=== PATIENT | male | born 1940 | race Caucasian/White ===

== ENCOUNTER 2017-02-13 11:50 | Emergency (ER) | payer OTHER, BC ==
[~2017-02-13] VITALS: Ht 182.9 cm; Wt 81.2 kg
--- NOTE | ~2017-02-13 | EKG ---
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 02/14/17 1505 1155 1155 Cole Li MD, [facility] /EPI
[~2017-02-13 11:50] MED LIST: ASPIRIN325 PO; ASPIRIN81 M2 PO; ATENOLOL 50 MG50 M1 PO; ATENOLOL 50MG T50 M1 PO; ATORVASTATIN CA40 MG PO; BACTRIM DS TAB1 EACH PO; CRESTOR40 MG PO; FISH OIL300 MG PO; FLOMAX0.4 MG PO; IMDUR 30 MG TAB30 M1 PO; IMDUR 60 MG TAB60 M1 PO; LEVITRA2.5 MG PO; LEVITRA20 MG PO; LISINOPRIL20 MG PO; LOTRISONE CREAM15 GM; NITROGLYCERIN0.4 MG SUBLING; NITROQUICK0.4 MG SL; NORVASC 5 MG TAB5 MG PO; OCUVITE SOFTGE1 EAC1 PO; PLAVIX 75 MG TA75 MG PO; PROPRANOLOL HCL60 M1 PO; PROSCAR 5MG TABL5 MG PO; RANEXA500 MG PO; SORINE 80 MG TA80 M1 PO; TOLTERODINE TART4 MG PO; TYLENOL325 MG PO; VIAGRA100 MG PO; VITAMIN B-12500 MCG PO; VITAMIN D-32000 UNIT PO; XARELTO10 MG PO; XARELTO20 MG PO; ZANTAC 150MG T150 M1 PO; ZANTAC 150MG T150 MG PO; ZETIA10 MG PO
[2017-02-13] MEDS ORDERED: RANEXA500 MG PO (12:14)
[2017-02-13] MEDS ORDERED: NATURAL LUTEIN20 MG PO (12:15)
[2017-02-13 12:23] LABS: ABSOLUTE NEUTROPHILS 3.5 thou/uL (1.4-8.2); BASOPHILS 0.6 % (0.0-2.0); EOSINOPHILS 1.6 % (0.0-3.0); HEMATOCRIT 43.2 % (42.0-52.0); HEMOGLOBIN 15.3 gm/dL (14.0-18.0); LYMPHOCYTES 21.7 % (24.0-44.0); MCH 32.5 pg (26.0-34.0); MCHC 35.5 g/dL (28.0-37.0); MCV 91.5 fL (80.0-100.0); MONOCYTES 9.3 % (1.0-8.0); PLATELET COUNT 150 thou/uL (150-400); POLYS 66.8 % (36.0-66.0); RBC 4.72 mil/uL (4.50-6.00); RDW 13.7 % (10.5-14.5); WBC 5.2 thou/uL (4.0-11.0)
[2017-02-13 12:25] LABS: MANUAL DIFF NO
[2017-02-13 12:49] LABS: ANION GAP 7 mmol/L (7-16); BUN 13 mg/dL (7-18); CALCIUM 8.4 mg/dL (8.5-10.1); CHLORIDE 106 mmol/L (98-107); CO2 26 mmol/L (21-32); GLUCOSE 112 mg/dL (74-106); POTASSIUM 3.9 mmol/L (3.5-5.1); SODIUM 139 mmol/L (136-145)
[2017-02-13 13:00] LABS: ALBUMIN 3.3 g/dL (3.4-5.0); ALKALINE PHOSPHATASE 81 U/L (46-116); NT-PRO BRAIN NAT PEPTIDE 157 pg/mL (<300); SGOT 18 U/L (15-37); SGPT 16 U/L (30-65); TOTAL BILIRUBIN 0.9 mg/dL (<0.1-1.0); TOTAL PROTEIN 6.7 g/dL (6.4-8.2); TROPONIN-I < 0.04 ng/mL (<0.04-0.07)
[2017-02-13] MEDS ORDERED: COMPAZINE10 MG PO (13:45)
== END 2017-02-13 16:35 ==
LOC: ER 11:50
PROVIDERS: Physician Assistant
DX: I10 Essential (primary) hypertension (principal); Z95.5 Presence of coronary angioplasty implant and graft; Z95.1 Presence of aortocoronary bypass graft; E78.5 Hyperlipidemia, unspecified; I48.91 Unspecified atrial fibrillation; Z88.5 Allergy status to narcotic agent; F17.210 Nicotine dependence, cigarettes, uncomplicated; F10.99 Alcohol use, unspecified with unspecified alcohol-induced disorder

== ENCOUNTER 2018-01-22 19:53 | Emergency (ER) | payer OTHER, BC ==
[~2018-01-22] VITALS: Ht 182.9 cm; Wt 72.6 kg
[~2018-01-22 19:53] MED LIST changes: +COMPAZINE10 MG PO; +NATURAL LUTEIN20 MG PO
== END 2018-01-22 21:06 | disposition home or self-care (01) ==
LOC: ER 19:53
DX: S01.512A Laceration without foreign body of oral cavity, initial encounter (principal); E11.9 Type 2 diabetes mellitus without complications; J44.9 Chronic obstructive pulmonary disease, unspecified; E03.9 Hypothyroidism, unspecified; G62.9 Polyneuropathy, unspecified; Z91.040 Latex allergy status; Z88.2 Allergy status to sulfonamides; Z91.012 Allergy to eggs; Z77.22 Contact with and (suspected) exposure to environmental tobacco smoke (acute) (chronic); Z79.4 Long term (current) use of insulin; X58.XXXA Exposure to other specified factors, initial encounter; Y93.89 Activity, other specified; Y92.89 Other specified places as the place of occurrence of the external cause; Y99.8 Other external cause status

== ENCOUNTER 2018-01-27 14:18 | Emergency (ER) | payer OTHER, BC ==
[~2018-01-27] VITALS: Ht 182.9 cm; Wt 72.6 kg
--- NOTE | ~2018-01-27 | EKG ---
[place] [address] [facility] [place] [address] ELECTROCARDIOGRAM REPORT Name: SCOUT DEL TORO Room #: REG [facility] [id number] Admission: 01/27/18 Attend Phys: Discharge: Date of : 42 Report #: [id number] THIS REPORT FOR: //name// [facility] ED Test Date: 2018-01-27 Test Time: 14:25:14 Pat Name: SCOUT DEL TORO Department: Room: Gender: Stunt Woman: YULIA : 1940 Requested By: Zina Segura Order Number: [id number] MD: Crescencio Araiza Measurements Intervals [place] Rate: 68 P: -7 OK: 231 QRS: -64 QRSD: 150 T: 68 QT: 453 QTc: 482 Interpretive Statements Sinus rhythm Prolonged [place] interval Left bundle branch block Compared to ECG 02/13/2017 11:55:43 Left bundle-branch block now present Prolonged QT interval no longer present Electronically Signed On 01-27-2018 16:13:29 CDT by Crescencio Araiza [email or web address] <ELECTRONICALLY SIGNED> By: Crescencio Araiza MD 01/27/18 1613 1425 1425 Crescencio Araiza MD /ANIA
[2018-01-27 14:41] LABS: ABSOLUTE NEUTROPHILS 3.4 thou/uL (1.4-8.2); BASOPHILS 0.7 % (0.0-2.0); HEMATOCRIT 35.7 % (42.0-52.0); HEMOGLOBIN 12.3 gm/dL (14.0-18.0); LYMPHOCYTES 23.8 % (24.0-44.0); MCH 34.7 pg (26.0-34.0); MCHC 34.5 g/dL (28.0-37.0); MCV 100.5 fL (80.0-100.0); MONOCYTES 11.4 % (1.0-8.0); PLATELET COUNT 140 thou/uL (150-400); POLYS 62.1 % (36.0-66.0); RBC 3.55 mil/uL (4.50-6.00); RDW 15.8 % (10.5-14.5); WBC 5.5 thou/uL (4.0-11.0)
[2018-01-27 14:54] LABS: ANION GAP 8 mmol/L (7-16); BUN 14 mg/dL (7-18); CALCIUM 8.5 mg/dL (8.5-10.1); CHLORIDE 104 mmol/L (98-107); CO2 26 mmol/L (21-32); GLUCOSE 91 mg/dL (74-106); POTASSIUM 4.1 mmol/L (3.5-5.1); SODIUM 138 mmol/L (136-145)
[2018-01-27 14:57] LABS: INR 1.2; PROTIME 12.7 Seconds (9.3-11.4)
[2018-01-27 15:02] LABS: ALBUMIN 3.4 g/dL (3.4-5.0); SGOT 20 U/L (15-37); SGPT 18 U/L (30-65); TOTAL BILIRUBIN 1.4 mg/dL (<0.1-1.0); TOTAL PROTEIN 6.2 g/dL (6.4-8.2); TROPONIN-I < 0.04 ng/mL (<0.06)
[2018-01-27] MEDS ORDERED: ONDANSETRON HCL4 M2 PO (17:05)
[2018-01-27] MEDS ORDERED: NITROGLYCERIN0.4 MG SUBLING (17:05)
[2018-01-27] MEDS ORDERED: HYDROCODONE-AP1 EAC6 PO (17:05)
== END 2018-01-27 17:36 | disposition home or self-care (01) ==
LOC: ER 14:18
PROVIDERS: Physician Assistant
DX: R07.9 Chest pain, unspecified (principal); M54.9 Dorsalgia, unspecified; I25.810 Atherosclerosis of coronary artery bypass graft(s) without angina pectoris; K21.9 Gastro-esophageal reflux disease without esophagitis; E78.5 Hyperlipidemia, unspecified; I10 Essential (primary) hypertension; I48.91 Unspecified atrial fibrillation; Z88.5 Allergy status to narcotic agent

== ENCOUNTER → 2018-02-09 | Outpatient (CLI) | payer OTHER, BC ==
[2018-02-09] VITALS (8 sets, daily range): BP systolic 133–185; BP diastolic 59–87
[~2018-02-09] VITALS: Ht 182.9 cm; Wt 76.7 kg
[~2018-02-09] MED LIST changes: +HYDROCODONE-AP1 EAC6 PO; +MYRBETRIQ50 MG PO; +ONDANSETRON HCL4 M2 PO; +PHENAZOPYRIDIN200 M2 PO; +PLAVIX 75 MG TA75 M1 PO
--- NOTE | ~2018-02-09 | EKG ---
[address] [address] ELECTROCARDIOGRAM REPORT Name: SCOUT DEL TORO [facility] #: [facility] [id number] Admission: 02/09/18 Attend Phys: José Bernard MD, FA Discharge: Date of : 42 Report #: [id number] THIS REPORT FOR: //name// 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 : 1940 Requested By: José Bernard Order Number: [id number] MD: Crescencio Araiza Measurements Intervals [place] Rate: 56 P: 55 ND: 300 QRS: 39 QRSD: 98 T: 9 QT: 504 QTc: 487 Interpretive Statements Sinus rhythm Prolonged ND interval Anterior infarct, old Compared to ECG 01/27/2018 14:25:14 Myocardial infarct finding now present Left bundle-branch block no longer present Electronically Signed On 02-09-2018 7:44:29 CDT by Crescencio Araiza [email or web address] <ELECTRONICALLY SIGNED> By: Crescencio Araiza MD 02/09/1844 2 2 Crescencio Araiza MD /EPI
--- NOTE | ~2018-02-09 | CATHLAB ---
[facility] [address] INVASIVE PROCEDURE REPORT Name: SCOUT DEL TORO Room #: REG Cheryl#: [id number] Admission: 02/09/18 Attend Phys: José Bernard MD Discharge: Date of : 42 Date of Service: 02/09/18 1349 Report #: [id number] THIS REPORT FOR: //name// APPROVED REPORT Study performed: 02/09/2018 07:12:42 Patient Details Patient Status: Out-Patient Room #: The patient is a 77 year-old male Event Personnel José Bernard Licensed Electrician, Harjeet Blas RN, José Wagoner Monitor, Marilia Nelson RTR, SNOW FENCE ERECTOR Scrub Procedures Performed Left Heart Cath Coronaries, Bypass Grafts [id number] CCORCABG Indication Abnormal ECG, Chest pain Risk Factors Arterial Hypertension, Hypercholesterolemia, Coronary Artery Disease Previous Procedures/Diagnoses Previous CABGPrevious PCI Procedure Narrative The patient was brought electively to the Cardiac Catheterization Laboratory and was prepped and draped in a sterile manner. The Right Groin^ was infiltrated with 1% Lidocaine subcutaneous anesthesia. A PINNACLE 6FR Sheath #[id number] sheath was inserted into the RFA^. Coronary angiography was performed using coronary diagnostic catheters. The right coronary system was accessed and visualized with a JR4 catheter. The left coronary system was accessed and visualized with a JL4 catheter. The left ventricle was accessed and visualized with a PIGTAIL catheter. Left ventriculogram was performed in 30 degree projection. Closure device was deployed with a 6 Fr MYNXGRIP 6/7F #[id number]. The patient tolerated the procedure well and there were no complications associated with the procedure. There was no hematoma. BAXTER catheter used to engage BAXTER graft. jr4 catheter used to visualize the svg. [facility] [place] [address] INVASIVE PROCEDURE REPORT Name: SCOUT DEL TORO Room #: REG [facility] [id number] Admission: 02/09/18 Attend Phys: José Bernard MD Discharge: Date of : 42 Date of Service: 02/09/18 1349 Report #: [id number] Intraoperative Conscious Sedation Sedation start time: 8.29 Case end Time: 8.58 Versed 3 mg Fluoro Time: 4.26 minutes Dose: DAP [id number] cGycm2 283 mGy Contrast Type and Amount: Omnipaque 145 ml Coronary Angiography The patient's coronary anatomy is left dominant. [place] Artery Percent Stenosis Singel SVG stump identified that presiously had gone to the circumflex artery. Patent BAXTER graft noted to the lad. Regrogade, the BAXTER graft filled the more proximal lad and filled a small first diagonal branch that had a 90% ostial stenosis Diagnostic Cath Left Main 0% stenosis LAD proximally occluded Circumflex Ostial 80% stenosis. Distally occluded and gave off only a small marginal branch L PDA previous stent that was occluded and vessel filled by bridging collaterals Right Coronary nondominant and had a proximal 60% stenosis Ramus ostial stent without restenosis Left Ventriculography The left ventricle is normal in size with normal contractility. The left ventricular ejection fraction is estimated to be 55-60%. Left ventricular wall motion abnormalities are not present. There is no mitral insufficiency. Hemodynamics The aortic pressure is 171/70 mmHg with a mean of 94 mmHg. The left ventricular pressure is 169/8 mmHg with a mean of mmHg. The left ventricular end diastolic pressure is 19 mmHg. There was no gradient across the aortic valve upon pullback. Pullback from the left ventricle to the aorta revealed no gradient across the aortic valve. Conclusion 1. Patent baxter graft to the lad although retrogade it filled a samll diagonal branch with a 90% ostial stenosis [facility] [address] [address] INVASIVE PROCEDURE REPORT Name: KATEYSCUOT Ashish Room #: REG [facility] [id number] Admission: 02/09/18 Attend Phys: José Bernard MD Discharge: Date of : 42 Date of Service: 02/09/18 1349 Report #: [id number] 2. 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 patent stent in the ostium of the ramus artery Recommendations [facility] <ELECTRONICALLY SIGNED> By: José Bernard MD, FACC 02/09/18 1349 1349 José Bernard MD, FAC /INF
[2018-02-09 07:29] LABS: HEMATOCRIT 36.3 % (42.0-52.0); HEMOGLOBIN 12.2 gm/dL (14.0-18.0); MCHC 33.7 g/dL (28.0-37.0); MCV 103.7 fL (80.0-100.0); RBC 3.49 mil/uL (4.50-6.00); RDW 14.2 % (10.5-14.5); WBC 4.9 thou/uL (4.0-11.0)
[2018-02-09 07:36] LABS: ANION GAP 8 mmol/L (7-16); BUN 15 mg/dL (7-18); CALCIUM 8.5 mg/dL (8.5-10.1); CHLORIDE 106 mmol/L (98-107); CO2 27 mmol/L (21-32); CREATININE 1.1 mg/dL (0.7-1.3); GLUCOSE 94 mg/dL (74-106); POTASSIUM 3.6 mmol/L (3.5-5.1); SODIUM 141 mmol/L (136-145)
[2018-02-09 07:42] LABS: CHOLESTEROL 135 mg/dL (<200); HDL CHOLESTEROL 54 mg/dL (>40); LDL CHOLESTEROL 63 mg/dL (<100); TC:HDL 2.5 Ratio (Not establshd); TRIGLYCERIDE 94 mg/dL (<150); VLDL 19 mg/dL (<40)
== END | disposition home or self-care (01) ==
LOC: CATH 06:50
PROVIDERS: Internal Medicine Cardiovascular Disease
DX: I25.10 Atherosclerotic heart disease of native coronary artery without angina pectoris (principal); I10 Essential (primary) hypertension; I48.91 Unspecified atrial fibrillation; E78.5 Hyperlipidemia, unspecified; K21.9 Gastro-esophageal reflux disease without esophagitis; Z87.891 Personal history of nicotine dependence; Z79.01 Long term (current) use of anticoagulants; Z95.1 Presence of aortocoronary bypass graft; Z98.890 Other specified postprocedural states; Z95.5 Presence of coronary angioplasty implant and graft; Z85.46 Personal history of malignant neoplasm of prostate; Z98.52 Vasectomy status; Z79.899 Other long term (current) drug therapy; Z88.8 Allergy status to other drugs, medicaments and biological substances